=== PATIENT | male | born 1955 | race American Indian/Alaskan Native ===

== ENCOUNTER 2018-01-17 06:51 | Day surgery (SDC) | payer BC, MEDICARE ==
[2018-01-12 07:43] VITALS: BMI 42.1
[2018-01-17 09:22] VITALS: BP 96/65; PULSE 95; RESP 20; TEMP 97.9; O2SAT 100
[2018-01-17 09:29] LABS: CALCIUM 8.8 mg/dl (8.6-10.4)
[2018-01-17] MEDS ORDERED: Midazolam 2 MG/2 ML VIAL ONE (10:31)
[2018-01-17] MEDS ORDERED: Propofol 10 mg/ml Inj (20 ML) ONE (10:31)
[2018-01-17] MEDS ORDERED: Lidocaine Hydrochloride 0 ML INJ ONE (10:48)
[2018-01-17] MEDS ORDERED: ceFAZolin IV 1 gm in Dextrose 0 GM/0 ML BAG IVPB ONE (10:48)
[2018-01-17] MEDS ORDERED: HEPARIN-NS 5,000 UNITS/500 ML 5,000 UNIT/500 ML BAG IV ONE (10:51)
== END 2018-01-17 12:48 | disposition home or self-care (01) ==
LOC: C.SDS 06:51
PROVIDERS: ATTEND Surgery Vascular Surgery
DX: Z53.9 Procedure and treatment not carried out, unspecified reason (principal); N18.6 End stage renal disease
CPT/HCPCS: 36415; 80048; 82948; J2250; J2704; J3010

== ENCOUNTER 2018-07-20 11:18 | Outpatient (CLI) | payer BC, MEDICARE | END 2018-07-20 11:19 | disposition home or self-care (01) | LOC: C.PAT 11:18 | DX: N18.6 End stage renal disease (principal) ==